=== PATIENT | female | born 1950 | race African-American/Black ===

== ENCOUNTER 2018-05-25 14:06 | Observation (INO) | payer MEDICARE ==
[~2018-05-25 14:06] MED LIST: ISOVUE-370 76%-LOCM 1 ML ONE
[2018-05-25] MEDS ORDERED: Nitroglycerin 2% Ointment 1 INCH/1 GM Packet ONE (14:28)
[2018-05-25 14:38] LABS: #Eosinphils 0.1 thou/uL (0.0-0.7); #Lymphocytes 1.6 thou/uL (1.20-3.40); #Monocytes 0.5 thou/uL (0.11-0.59); #Neutrophils 2.5 thou/uL (1.40-6.50); %Basophils 0.8 % (0.0-1.0); %Lymphocytes 33.8 % (21.0-51.0); %Monocytes 9.9 % (0.0-10.0); %Neutrophils 52.5 % (42.0-75.0); Hemoglobin 13.3 g/dL (12.0-16.0); Mean Corpuscular HGB CONC 35.4 g/dL (32.0-36.0); Mean Corpuscular Hemoglobin 36.2 pg (27.0-31.0); Mean Platelet Volume 6.2 fL (7.4-10.4); Platelet Count 269 thou/uL (130-400); RBC Distribution Width 11.1 % (11.5-14.5); Red Blood Cell (RBC) Count 3.68 mill/uL (4.20-5.40); White Blood Cell (WBC) Count 4.7 thou/uL (4.8-10.8)
[2018-05-25 15:04] LABS: ALT (SGPT) 28 U/L (8-55); AST (SGOT) 46 U/L (5-34); Albumin 3.6 g/dL (3.4-4.8); Alkaline Phosphatase 83 U/L (40-150); Anion Gap 15 mmol/L (10-20); BUN (Urea Nitrogen) 16 mg/dL (9.8-20.1); Bilirubin, Total 0.4 mg/dL (0.2-1.2); CK (CPK) 66 U/L (29-168); Calc. Creatinine Clearance 0 mL/min (70-130); Calcium 8.8 mg/dL (7.8-10.44); Carbon Dioxide 18 mmol/L (23-31); Chloride 107 mmol/L (98-107); Estimated GFR-MDRD 55; Globulin 3.6 g/dL (2.4-3.5); Glucose 112 mg/dL (80-115); Lipase 100 U/L (8-78); Potassium 4.2 mmol/L (3.5-5.1); Protein, Total 7.2 g/dL (6.0-8.3); Sodium 136 mmol/L (136-145)
[2018-05-25 15:05] LABS: CKMB 1.3 ng/mL (0-6.6); Troponin I Less than 0.010 ng/mL (< 0.028)
--- NOTE | 2018-05-25 15:08 | RAD ---
PORTABLE CHEST: HISTORY: Chest pain. FINDINGS: Lungs appear clear of infiltrate. No evidence of vascular congestion. Heart size is upper normal. A MediPort catheter appears adequately positioned. Mild atelectasis in the left lung base. IMPRESSION: No acute process. POS: [facility]
[2018-05-25] MEDS ORDERED: Morphine 4 MG/ML VIAL ONE ×2 (15:47→19:42)
--- NOTE | 2018-05-25 16:15 | CT ---
CT PULMONARY CHEST WITH CONTRAST: INDICATIONS: Chest pain. Dyspnea. TECHNIQUE: Multiplanar reconstructions and 3D post processing obtained. FINDINGS: The pulmonary arteries show adequate opacification. No evidence of pulmonary embolus identified. The lung juarez show chronic lung parenchymal changes. There is hyperexpansion with stranding and in terstitial prominence in the lung bases. No evidence of inflammatory infiltrate. No evidence of eff usion. The thoracic aorta is unremarkable. There is no evidence of dissection. Images through the upper abdomen are unremarkable. IMPRESSION: 1. No evidence of pulmonary embolus. 2. There are chronic lung parenchymal changes, as described, without evidence of an acute process. POS: [facility]
--- NOTE | 2018-05-25 19:08 | PDOC.FPRHP ---
- History of Present Illness Chief Complaint: chest pain, SOB History of Present Illness: Ms. Campbell is a 68yo AAF who presented to ED for chest pain. Started 1 day ago, it was bilateral in the mid chest, sharp, did not radiate. It was worse with exertion and "pulling up her pants" and improved with rest. There was associated with SOB but no nausea or diaphoresis. She has no reported prior history of cardiac conditions. Denies PMH of HLD, HTN, or DM. 5 year ago she was dx with bilateral breast cancer and underwent b/l mastectomy with rounds of radiation and chemotherapy. She has a left mediport in that she will keep until she can visit her doctor in [facility] to have breast implants placed. ED Course: In the ED she was found to have an SBP in 190s. Was given aspirin and nitro paste. CTA was negative for PE and CXR showed mild atelectasis in the left lung base. - Allergies/Adverse Reactions Allergies Allergy/AdvReac Type Severity Reaction Status Date / Time No Known Drug Allergies Allergy Verified 05/25/18 21:58 - History PMHx: b/l breast CA, s/p mastectomy, chemo and riaddtion PSHx: b/l breast mastectomy FHx: stroke, HTN, DM Social: denies tobacco and drug use. Endorses 2 beers/day for several years (>10 ) - Review of Systems General: denies: fever/chills, weight/appetite/sleep changes, night sweats Eyes: denies: eye pain, vision changes ENT: denies: nasal congestion, rhinorrhea Respiratory: reports: shortness of breath. denies: cough, congestion, exercise intolerance Cardiovascular: reports: chest pain. denies: palpitation, edema, paroxysmal nocturnal dyspnea Gastrointestinal: denies: nausea, vomiting, diarrhea, constipation, abdominal pain, GI bleeding Genitourinary: denies: dysuria, discharge Skin: denies: rashes, lesions, itching Musculoskeletal: denies: pain, tenderness, stiffness, swelling, arthritis/ arthralgias Neurological: denies: numbness, weakness Psychological: reports: anxiety - Vital signs BP: 168/84 HR: 57 RR: 16 Tmax:98.3 Pox: 99% onRA Wt: [64.7] - Physical Exam Constitutional: NAD, awake, alert and oriented HEENT: normocephalic and atraumatic, PERRLA, EOMI, conjunctiva clear, no scleral icterus, grossly normal vision, grossly normal hearing, MMM Neck: supple, FROM Chest: no-tender to palpation, no lesions Heart: normal S1/S2, no murmurs/rubs/gallops -Heart: bradycardic Lungs: no respiratory distress, good air movement -Lungs: mild expiratory wheezing Abdomen: soft, non-tender, bowel sounds present Musculoskeletal: normal structure, normal tone, ROM grossly normal Neurological: no focal deficit, CN II-XII intact Skin: no rash/lesions, good turgor, capillary refill <2 seconds Heme/Lymphatic: no unusual bruising or bleeding, no purpura Psychiatric: normal mood and affect, good judgment and insight, intact recent and remote memory FMR H&P: Results - Labs Result Diagrams: 05/25/18 14:31 05/25/18 14:31 Lab results: WBC 4.7 thou/uL (4.8-10.8) L 05/25/18 14:31 Hgb 13.3 g/dL (12.0-16.0) 05/25/18 14:31 Hct 37.6 % (36.0-47.0) 05/25/18 14:31 MCV 102.0 fL (78.0-98.0) H 05/25/18 14:31 Plt Count 269 thou/uL (130-400) 05/25/18 14:31 Neutrophils % 52.5 % (42.0-75.0) 05/25/18 14:31 Sodium 136 mmol/L (136-145) 05/25/18 14:31 Potassium 4.2 mmol/L (3.5-5.1) 05/25/18 14:31 Chloride 107 mmol/L (98-107) 05/25/18 14:31 Carbon Dioxide 18 mmol/L (23-31) L 05/25/18 14:31 BUN 16 mg/dL (9.8-20.1) 05/25/18 14:31 Creatinine 1.00 mg/dL (0.6-1.1) 05/25/18 14:31 Glucose 112 mg/dL (80-115) 05/25/18 14:31 Calcium 8.8 mg/dL (7.8-10.44) 05/25/18 14:31 Total Bilirubin 0.4 mg/dL (0.2-1.2) 05/25/18 14:31 AST 46 U/L (5-34) H 05/25/18 14:31 ALT 28 U/L (8-55) 05/25/18 14:31 Alkaline Phosphatase 83 U/L (40-150) 05/25/18 14:31 Creatine Kinase 66 U/L (29-168) 05/25/18 14:31 CK-MB (CK-2) 1.3 ng/mL (0-6.6) 05/25/18 14:31 Serum Total Protein 7.2 g/dL (6.0-8.3) 05/25/18 14:31 Albumin 3.6 g/dL (3.4-4.8) 05/25/18 14:31 Lipase 100 U/L (8-78) H 05/25/18 14:31 - Radiology Interpretation CT scan - chest Status: report reviewed by me Chest x-ray Status: image reviewed by me, report reviewed by me Additional comment: mild left lung atelectasis, mild cardiomegaly, no other acute changes FMR H&P: A/P - Problem List (1) Atypical chest pain Current Visit: Yes Status: Acute Code(s): R07.89 - OTHER CHEST PAIN (2) Hypertensive urgency Current Visit: Yes Status: Acute Code(s): I16.0 - HYPERTENSIVE URGENCY - Plan 68 yo F with atypical chest pain admitted for ACS r/o Atypical chest pain, ACS r/o -ddx: hypertensive urgency vs. anxiety provoked vs. MSK -s/p morphine & nitro paste in ED -likely due to hypertensive urgency since pain was minimal with decreasing BPs -CE negative x3 -EKG: RBBB, LVH, no ST elevations or depressions -Will order A1c, fasting lipid panel, UDS to risk stratify patient -Check TSH as other potential etiology -Start on ASA, prn nitro -NST in AM: npo at midnight Hypertensive urengcy -monitor BPs for age appropriate goal of around SBP 150 -BPs improved with nitro -PRN hydralazine -will start on amlodipine 5 mg daily Possible ALFREDO on CKD3 -unknown baseline, patient denies any prior renal problems but possible ALFREDO so will start on fluids and monitor with AM BMP Elevated AST, mildly -could secondary to chronic etoh use, consider possibility may be consuming more than reported -BAL <10 -mild elevation but can consider screening for other etiologies with RPR, HepB/C , HIV. could be due to transient end organ damage from hypertensive urgency. Can recheck with AM CMP. Sinus bradycardia -pt. currently asx -continue to monitor in tele H/o of breast cancer s/p b/l mastectomy with chemo & radiation -MD aware -no related pain or concerns at this time discussed with dr. echevarria FMR H&P: Upper Level - Pertinent history 68 yo F with a PMH of HTN and breast CA s/p chemoradiation & bilateral mastectomy in 2013 presents with chief complaint of chest pain. Pt describes "numb" left sided chest pain that began yesterday. Worsened with activities like pulling up pants but denies it is exertional in nature as she is able to walk without CP. Improved with lying down. Associated with SOB but denies VILLASENOR, change in vision, palpitations, NVD, abdominal pain, radiation of pain, diaphoresis, recent sicknesses or sick contacts. She does note she recently traveled from [place], [place]. She is only visiting this area as a friend of hers had a few family members in the hospital. She does endorse this has been a stressful time for her dealing with her friend's sick family. Patient takes no medications, notes her last visit to PCP was 1 year ago when she had normal lab work drawn, and denies any history of cardiac disease or HTN. Pt denies tobacco or illicit drugs. She endorses drinking 1 beer per day. CXR, CTA chest, and lab work in ER was normal. EKG revealed NSR rate 60s, RBBB, LVH, no ST changes. - Pertinent findings Vitals: BP 134/84, HR 61, R 16, O2 100% on RA, wt 63.5kg Gen: well developed in NAD CV: chest wall NTTP, good S1, S2, RRR, no friction rub Resp: good effort, no distress, prolonged expiratory phase, CTAB Abd: BS+, NTTP, no distension Ext: no cyanosis or edema - Plan Date/Time: 05/25/181907 I, Ralph Cobos MD PGY3, have evaluated this patient and agree with findings/ plan as outlined by paid intern resident. Pertinent changes/additions are listed here. 1. Atypical CP likely 2/2 HTN urgency vs anxiety -Pt p/w CP & HTN urgency range BPs. With age, EKG findings, & risk factors pt has a HEART score of 5. -Will admit to telemetry observation, trend cardiac enzymes and plan for cardiac stress test in AM. -Nitro, morphine, and oxygen PRN chest pain. Pt received transdermal nitro and morphine at same time in ER so unsure which helped her pain. -Will also obtain UDS, TSH, FLP, and A1c for further risk stratification. Calculate ASCVD risk. -DDx includes HTN urgency, anxiety, MSK pain, pericarditis. MSK pain unlikely as pain is not reproducible. Pt has no ST changes, no recent viral symptoms, but pain does change character by movement so pericarditis possible. 2. HTN urgency, improved -Better controlled BP with transdermal nitroglycerin -Initiate amlodipine 5 mg daily. PRNs available for SBP > 180. 3. RBBB -Unclear whether this established or a new diagnosis. -Work up per above, consider TTE but can likely be worked up outpatient. 4. ALFREDO vs CKD -Pt denies PMH but no known baseline as she is visiting from [place]. -mIVF with NS@100. -Trend BMP in AM. 5. Elevated AST likely 2/2 EtOH intake -Mildly elevated, follow up outpatient. 6. Hx of breast CA s/p chemoradiation & BL mastectomy -Pt notes she has been cancer free since her mastectomy but still has the mediport for blood draws. She has not received treatment for 4-5 years. PPx: Lovenox for VTE, no GI indicated. CODE status: FULL disposition: Admit under observation status for anticipated length of stay less than two midnights, pending clinical course.
[2018-05-25] MEDS ORDERED: Ondansetron ODT 4 MG TAB PO PRN (20:34)
[2018-05-25] MEDS ORDERED: Nitroglycerin 0.4 MG TAB (25 Tab Bottle) PO PRN (20:34)
[2018-05-25] MEDS ORDERED: Ondansetron HCl/PF 4 MG/2 ML Vial IVP PRN (20:34)
[2018-05-25 21:01] LABS: Hemoglobin A1c 4.3 % (4.0-6.0)
[2018-05-25] MEDS ORDERED: hydrALAZINE 20 MG/ML VIAL SLOW IVP PRN (21:14)
[2018-05-25 21:19] VITALS: BMI 23.0
[2018-05-25 21:37] LABS: CKMB 1.4 ng/mL (0-6.6); Troponin I Less than 0.010 ng/mL (< 0.028)
[2018-05-25] MEDS: Sodium Chloride 0.9% 1,000 ML IV SCH (23:34)
[2018-05-25] MEDS: Acetaminophen 325 MG TAB PO PRN (23:42)
[2018-05-26 00:18] LABS: CKMB 1.5 ng/mL (0-6.6); Troponin I Less than 0.010 ng/mL (< 0.028)
[2018-05-26] MEDS: Amlodipine 5 MG TAB PO SCH ×2 (02:54→11:13)
[2018-05-26] MEDS ORDERED: Ketorolac Tromethamine 30 MG/ML VIAL IVP SCH (03:00)
[2018-05-26 03:18] LABS: Medtox Reader # READER 1
[2018-05-26 03:19] LABS: Cocaine Metabolite Screen Detected (NotDetected); Opiate Screen Detected (NotDetected); Phencyclidine (PCP) Not Detected (NotDetected); THC/Cannabinoid Screen Not Detected (NotDetected)
[2018-05-26 03:20] LABS: Amphetamine Not Detected (NotDetected); Barbiturates Screen Not Detected (NotDetected); Benzodiazepine Screen Not Detected (NotDetected); Medtox Control Line Valid? VALID (VALID); Methadone Not Detected (NotDetected); Methamphetamine Not Detected (NotDetected); Oxycodone Screen Not Detected (NotDetected); Tricyclic Screen Not Detected (NotDetected)
[2018-05-26 05:04] LABS: Anion Gap 11 mmol/L (10-20); BUN (Urea Nitrogen) 16 mg/dL (9.8-20.1); Calc. Creatinine Clearance 52 mL/min (70-130); Calcium 8.8 mg/dL (7.8-10.44); Carbon Dioxide 24 mmol/L (23-31); Chloride 106 mmol/L (98-107); Cholesterol 166 mg/dl (< 200 Desired); Estimated GFR-MDRD 65; Glucose 82 mg/dL (80-115); HDL Cholesterol 82 mg/dL (>60 Neg Risk); LDL Cholesterol, Calculated 76 mg/dL; Potassium 3.9 mmol/L (3.5-5.1); Sodium 137 mmol/L (136-145); Triglycerides 38 mg/dL (Less than 150)
[2018-05-26] MEDS ORDERED: ADENOSINE 60 MG/20 ML VIAL ONE (08:40)
--- NOTE | 2018-05-26 08:45 | PDOC.FM ---
- Subjective Subjective: Pt feeling well this AM, says cp has resolved. no complaints at this time. ROS: no fevers/chills, no sob no cough, no cp no palpitations, no nausea no vomiting - Objective MAR Reviewed: Yes Vital Signs & Weight: Vital Signs (12 hours) Temp Pulse Resp BP Pulse Ox 05/26/18 08:00 97.8 F 59 L 18 05/26/18 07:28 97.8 F 59 L 18 166/84 H 100 05/26/18 06:58 98 05/26/18 02:54 57 L 05/26/18 02:44 98.1 F 57 L 18 139/73 98 05/25/18 23:37 98.5 F 59 L 16 172/79 H 100 05/25/18 21:05 98.3 F 57 L 16 05/25/18 20:54 98.3 F 57 L 16 168/84 H 99 Weight Weight 64.773 kg I&O: 05/25/18 05/26/18 05/27/18 06:59 06:59 06:59 Intake Total 947 Output Total 150 Balance 797 Result Diagrams: 05/25/18 14:31 05/26/18 04:21 Phys Exam - Physical Examination HEENT: moist MMs, sclera anicteric Respiratory: no wheezing, clear to auscultation bilateral Cardiovascular: RRR, no significant murmur Gastrointestinal: soft, non-tender Musculoskeletal: pulses present Psychiatric: normal affect Skin: no rash, normal turgor Dx/Plan (1) Atypical chest pain Code(s): R07.89 - OTHER CHEST PAIN Status: Acute (2) Hypertensive urgency Code(s): I16.0 - HYPERTENSIVE URGENCY Status: Acute - Plan Plan: 68yo F w pmh of breast cancer s/p bilateral mastectomy with chemo and radiation , presents with atypical chest pain and UDS +cocaine Atypical chest pain, ACS r/o A- likely drug induced, hypertensive urgency vs. anxiety provoked vs. MSK. Pain relieved with decreasing BPs. CE negative x3. EKG: RBBB, LVH, no ST elevations or depressions P- ASA, prn nitro -NST normal Hypertensive urgency A-pt responded to nitro, was not previously on medication P-PRN hydralazine -amlodipine 10 mg daily -monitor BPs for age appropriate goal of around SBP 150 Possible ALFREDO on CKD3 A -unknown baseline, patient denies any prior renal problems but possible ALFREDO Cr stable at 1.0 P- no fluids at this time considering pts htn Elevated AST, mildly A- could secondary to chronic etoh use, consider possibility may be consuming more than reported. could be due to transient end organ damage from hypertensive urgency. -- -BAL <10 P -recheck AST today -RPR, HepC, HIV. Sinus bradycardia -pt. currently asx -continue to monitor in tele H/o of breast cancer s/p b/l mastectomy with chemo & radiation -MD aware -no concerns at this time
[2018-05-26] MEDS ORDERED: Enoxaparin Sodium 40 MG/0.4 ML SYRINGE SC SCH (09:00)
[2018-05-26] MEDS ORDERED: Prevnar 13-Val Conj/PF 0.5 ML SYRINGE IM ONE (09:00)
[2018-05-26] MEDS: Sodium Chloride 0.9% 1,000 ML IV SCH (11:13)
--- NOTE | 2018-05-26 12:21 | NM ---
NUCLEAR MEDICINE CARDIAC STRESS TEST WITH EJECTION FRACTION: HISTORY: Chest pain. COMPARISON: None. TECHNIQUE: Stress and rest were performed after the intravenous administration of 31.7 and 11 mCi technetium-99m sestamibi intravenously, respectively. Exam was performed using nuclear Adenosine stress. FINDINGS: There is no scar or ischemia. Normal wall motion. Calculated ejection fraction is 67%. IMPRESSION: Normal nuclear medicine cardiac stress test and ejection fraction. POS: [facility]
[2018-05-26] MEDS ORDERED: Amlodipine 5 MG TAB PO SCH (14:15)
[2018-05-26 14:43] LABS: Syphilis Antibody Nonreactive (Nonreactive); Syphilis Antibody Index 0.05 S/CO (<1.00 Non-Reactive)
[2018-05-26] MEDS: Acetaminophen 325 MG TAB PO PRN (14:43)
[2018-05-26 14:44] LABS: HIV (1/2) Antibody/Antigen Non-Reactive (NonReactive); HIV 1/2 INDEX 0.32 S/CO (<1.00)
--- NOTE | 2018-05-26 15:50 | ADD-PRG ---
DATE OF SERVICE: 05/26/2018 This is an addendum to the note of Dr. Claude Raymond. HISTORY OF PRESENT ILLNESS: Ms. Campbell is a pleasant 68-year-old black female who was admitted with so me atypical chest pain. She was admitted for a stress nuclear test. The impression is that there is normal nuclear medicine cardiac stress test and ejection fraction. In the event, her urine drug scr een was positive for opiates and cocaine, which she denies using. Other laboratory data include Chem-7: Sodium 137, potassium is 3.9, chloride is 106, bicarbonate is 24, BUN 16, creatinine is 1.02. Glucose is 65. Triglycerides are 38, cholesterol 166, her LDL is 76 . Her HDL is 82. Her TSH is 0.58. She has no stress test evidence of coronary artery disease and will be counseled regarding her drug u se. Afterwards she will be eligible for discharge.
[2018-05-26 16:02] VITALS: TEMP 97.4
[2018-05-26 16:09] LABS: Hep C Index 12.58 S/CO (0-0.79)
[2018-05-26 16:10] LABS: Hep C IgG Ab Reflex HepC Qnt (NonReactive)
[2018-05-26] MEDS ORDERED: Lidocaine 2% Viscous Solution 10 ML, Aluminum & Magnesium Hydroxide 30 ML SSW SCH (16:15)
[2018-05-26 16:28] VITALS: BP 113/65
--- NOTE | 2018-05-27 05:16 | DIS-2 ---
DATE OF ADMISSION: 05/25/2018 DATE OF DISCHARGE: 05/26/2018 RESIDENT: Dr. Claude Raymond. ADMITTING ATTENDING: Dr. Adkins. DISCHARGE ATTENDING: Dr. Purdy. CONSULTATIONS: None. PROCEDURES: Chest x-ray on 05/25/2018: Impression: No acute process. Chest/thorax CTA on 05/25/20 18: Impression: No evidence of pulmonary embolus. There are chronic lung parenchymal changes as de scribed without evidence of acute process and stress test nuclear medicine on 05/26/2018: Impression : Normal nuclear medicine cardiac stress test and ejection fraction. PRIMARY DIAGNOSIS: Atypical chest pain secondary to hypertensive urgency. SECONDARY DIAGNOSIS: Hypertension. DISCHARGE MEDICATIONS: Amlodipine 5 mg p.o. daily #30. DISCONTINUED MEDICATIONS: None. HISTORY OF PRESENT ILLNESS AND HOSPITAL COURSE: This is a 68-year-old female with no medical history , presenting to the ED with history of atypical chest pain for 1 week. Patient describes the pain as sharp and bilateral on anterior chest, exacerbated by motion and was noticed to be worse while putti ng on pants. Patient had cardiac workup in the hospital after presentation, which included stress te st all of which came back negative. On review further of her history, she denied any drug use; howev er, UDS came back positive for cocaine. During hospital stay, the patient had some episodes of incre ased blood pressure with systolic reaching 196. This was managed with p.r.n. hydralazine and the pat ient was started on amlodipine 5 mg daily. After cardiac causes of chest pain were ruled out and hyp ertension was controlled, the patient was discharged with advisement from physician to abstain from c ocaine use. DISPOSITION: Stable. DISCHARGE INSTRUCTIONS: 1. Discharge home. 2. Diet: Low sodium. 3. Activity: As tolerated. 4. Followup: Follow up in [address] Claude Raymond at [facility].
[2018-05-27] MEDS ORDERED: Amlodipine 10 MG TAB PO SCH (09:00)
--- NOTE | 2018-05-28 12:44 | EKG ---
Test Reason : Blood Pressure : / mmHG Vent. Rate : 054 BPM Atrial Rate : 054 BPM P-R Int : 144 ms QRS Dur : 130 ms QT Int : 502 ms P-R-T Axes : 020 -17 004 degrees QTc Int : 476 ms Sinus bradycardia Right bundle branch block Voltage criteria for left ventricular hypertrophy Abnormal ECG Confirmed by KIM CHOUDHURY D.O. ([id number]), photography editor RUTHIE GARCIA ([id number] on 05/28/2018 12:44:14 PM Referred By: Confirmed By:KIM CHOUDHURY D.O.
--- NOTE | 2018-05-29 12:42 | STRESS ---
Acquisition Time: 2018-05-26 09:22:17 Total Exercise Time: 00:04:00 Test Indications: CHEST PAIN Medications: Protocol: ADENOSINE Max HR: 081 BPM 54% of Pred: 150 BPM Max BP: 172/086 mmHG Max Work Load: 1.0 METS RESTING ECG: SINUS BRADYCARDIA AT 53 BPM AND COMPLETE RIGHT BUNDLE BRANCH BLOCK SYMPTOMS: NONE NORMAL BP RESPONSE ECTOPY: NONE ECG STRESS: NO SIGNIFICANT CHANGES INTERPRETATION: INDETERMINATE ECG/AWAIT NUCLEAR IMAGES FOR DEFINITIVE DIAGNOSIS COMMENTS: TRANSIENT FIRST DEGREE AND 2:1 AV BLOCK WITH ADENOSINE INFUSION Confirmed by STACY SHIRLEY ELLEN ([id number]) on 05/29/2018 12:42:10 PM Referred By: MD Samantha IRIZARRY Confirmed By:DAMION SHIRLEY PA-C
[2018-05-29 14:29] LABS: HCV log10 6.212 (.); Hep C PCR-Quant 1630000 IU/mL (.)
== END 2018-05-26 18:59 | disposition home or self-care (01) ==
LOC: ERS 14:06 → 2SW 20:20
PROVIDERS: ADMIT Family Medicine; ATTEND Family Medicine
DX: I16.0 Hypertensive urgency (principal); R07.89 Other chest pain; R06.02 Shortness of breath; J98.11 Atelectasis; I11.9 Hypertensive heart disease without heart failure; Z85.3 Personal history of malignant neoplasm of breast; Z92.21 Personal history of antineoplastic chemotherapy; Z92.3 Personal history of irradiation; Z90.13 Acquired absence of bilateral breasts and nipples
CPT/HCPCS: 71045; 71275; 78452; 80048; 80061; 80306; 80307; 82550; 82553 ×2; 83036; 83690; 84484 ×2; 86780; 86803; 87389; 87522; 90670; 93005; 93017; 94760; 96361; 96372; 96374; 96375; 96376; 97139; 99285; A9500; G0009; G0378 ×2; G8978; G8979; G8980; 36415; 80053; 84443; 85025; 90471; A4216; J0153; J0360; J1650; J1885; J2270; Q0162